=== PATIENT | male | born 1990 ===

== ENCOUNTER 2021-08-22 14:11 | Inpatient (IN) ==
[2021-08-22 14:45] LABS: Hematocrit 20 % (42-52); Hemoglobin 6.7 g/dL (14.0-18.0); Mean Corpuscular HGB Conc 33 g/dL (31-36); Mean Corpuscular Hemoglobin 28 pg (27-31); Mean Corpuscular Volume 86 fL (80-94); Red Blood Count 2.35 10^6 /uL (4.18-5.48); Red Cell Distribution Width 15 % (10-15); White Blood Count 3.3 10^3/uL (3.5-10.8)
[2021-08-22 14:53] LABS: Activated Partial Thrombo Time 30.4 seconds (26.0-38.0); INR 1.08 (0.86-1.15)
[2021-08-22 14:59] LABS: Albumin 3.8 g/dL (3.2-5.2); Albumin/Globulin Ratio 1.9 (1-3); Calcium 8.4 mg/dL (8.6-10.3); Potassium 3.8 mmol/L (3.5-5.0); Total Bilirubin 0.4 mg/dL (0.2-1.0); Total Protein 5.8 g/dL (6.4-8.9)
[2021-08-22 15:00] LABS: ABS Eosinophils 0.1 10^3/ul (0-0.6); ABS Lymphocytes 1.2 10^3/ul (1.0-4.8); ABS Monocytes 0.3 10^3/ul (0-0.8); ABS Neutrophils 1.7 10^3/ul (1.5-7.7); Eosinophil % 4.3 %; Lymphocyte % 35.7 %; Mean Platelet Volume 10.5 fL (7.4-10.4); Nucleated Red Blood Cells % 0.1; Platelet Count 95 10^3/uL (150-450)
[2021-08-22] MEDS ORDERED: PEG 3000 GI LAVAGE 1 GALLON PO ONE (17:24)
[2021-08-22 17:55] LABS: Iron < 20 ug/dL (50-212)
[2021-08-22 18:14] LABS: Ferritin 3.3 ng/mL (24-336)
[2021-08-22] MEDS: NS 0.9% 1000 ml BAG 1,000 ML IV SCH (21:54)
[2021-08-22 22:08] LABS: Hematocrit 23 % (42-52); Hemoglobin 7.5 g/dL (14.0-18.0)
[2021-08-23] MEDS ORDERED: Magnesium CITRATE LIQ 300 ML BTL PO ONE (05:00)
[2021-08-23 06:29] LABS: Calcium 8.4 mg/dL (8.6-10.3); Potassium 3.9 mmol/L (3.5-5.0); eGFR CKD-EPI 123.6 (>60)
[2021-08-23 06:38] LABS: ABS Eosinophils 0.2 10^3/ul (0-0.6); ABS Lymphocytes 1.8 10^3/ul (1.0-4.8); ABS Monocytes 0.3 10^3/ul (0-0.8); ABS Neutrophils 1.9 10^3/ul (1.5-7.7); Eosinophil % 4.5 %; Hematocrit 23 % (42-52); Hemoglobin 7.7 g/dL (14.0-18.0); Lymphocyte % 42.9 %; Mean Corpuscular HGB Conc 34 g/dL (31-36); Mean Corpuscular Hemoglobin 29 pg (27-31); Mean Corpuscular Volume 87 fL (80-94); Mean Platelet Volume 11.1 fL (7.4-10.4); Nucleated Red Blood Cells % 0.1; Platelet Count 98 10^3/uL (150-450); Red Blood Count 2.63 10^6 /uL (4.18-5.48); Red Cell Distribution Width 15 % (10-15); White Blood Count 4.2 10^3/uL (3.5-10.8)
[2021-08-23] MEDS ORDERED: Ondansetron 4 mg VIAL 2 MG/ML 2 ml VIAL IV PRN (07:14)
[2021-08-23 10:21] LABS: Vitamin B12 185 pg/mL (180-914)
[2021-08-23] MEDS: NS 0.9% 1000 ml BAG 1,000 ML IV SCH (10:58)
[2021-08-23] MEDS ORDERED: Iron Sucrose 200 MG in NS 0.9% 100 ml BAG 100 ML IVPB ONE (12:00)
[2021-08-23] MEDS ORDERED: Cyanocobalamin INJ 1,000 MCG/ML VIAL 1 ML VIAL IM ONE (14:00)
[2021-08-23 14:11] LABS: Hepatitis B Surface Antigen Nonreactive (Nonreactive)
[2021-08-23] MEDS ORDERED: Midazolam 10 mg/10 ml VIAL 1 mg/ml 10 ml VIAL (10 mg) ONE (14:15)
[2021-08-23] MEDS ORDERED: diPHENhydraMINE IV 50 MG/ML 1 ml VIAL (BENADRYL) ONE (14:15)
[2021-08-23] MEDS ORDERED: fentaNYL 100 mcg/2 ml 50 MCG/ML VIAL ONE (14:15)
[2021-08-23 14:16] LABS: Hepatitis A Ab IgM Negative (Negative)
[2021-08-23 14:17] LABS: Hepatitis B Core IgM Nonreactive (Nonreactive)
[2021-08-23 14:29] LABS: Hepatitis C Antibody Negative (Negative)
[2021-08-24] MEDS: NS 0.9% 1000 ml BAG 1,000 ML IV SCH ×2 (03:48→19:55)
[2021-08-24] MEDS ORDERED: NS 0.9% 1000 ml BAG 1,000 ML IV ONE (04:30)
[2021-08-24 05:03] LABS: Immature Retic Fraction 0.56; RBC Retic Count 2.31 10^6/uL (4.18-5.48); Red Blood Count 2.31 10^6 /uL (4.18-5.48)
[2021-08-24 05:05] LABS: Calcium 8.1 mg/dL (8.6-10.3); eGFR CKD-EPI 125.1 (>60)
[2021-08-24 05:11] LABS: Hematocrit 20 % (42-52); Hematocrit for Retic CNT 20 % (42-52); Hemoglobin 6.7 g/dL (14.0-18.0); Mean Corpuscular HGB Conc 33 g/dL (31-36); Mean Corpuscular Hemoglobin 29 pg (27-31); Mean Corpuscular Volume 87 fL (80-94); Mean Platelet Volume 11.1 fL (7.4-10.4); Platelet Count 88 10^3/uL (150-450); Red Cell Distribution Width 15 % (10-15); White Blood Count 4.9 10^3/uL (3.5-10.8)
[2021-08-24 05:37] LABS: Folate 10.44 ng/mL (5.90-24.80)
[2021-08-24 05:39] LABS: Hepatitis B Surface Antigen Nonreactive (Nonreactive)
[2021-08-24 05:48] LABS: ABS Eosinophils 0.1 10^3/ul (0-0.6); ABS Lymphocytes 0.8 10^3/ul (1.0-4.8); ABS Monocytes 0.3 10^3/ul (0-0.8); ABS Neutrophils 3.7 10^3/ul (1.5-7.7); Eosinophil % 1.6 %; Lymphocyte % 17.1 %; Nucleated Red Blood Cells % 0.1
[2021-08-24] MEDS: Iron Sucrose 200 MG in NS 0.9% 100 ml BAG 100 ML IVPB SCH (16:18)
[2021-08-24] MEDS: Psyllium PAK PO SCH (16:18)
[2021-08-25 07:17] LABS: ABS Eosinophils 0.1 10^3/ul (0-0.6); ABS Lymphocytes 1.1 10^3/ul (1.0-4.8); ABS Monocytes 0.3 10^3/ul (0-0.8); ABS Neutrophils 1.9 10^3/ul (1.5-7.7); Eosinophil % 3.5 %; Hematocrit 22 % (42-52); Hemoglobin 7.1 g/dL (14.0-18.0); Lymphocyte % 31.8 %; Mean Corpuscular HGB Conc 33 g/dL (31-36); Mean Corpuscular Hemoglobin 28 pg (27-31); Mean Corpuscular Volume 86 fL (80-94); Mean Platelet Volume 10.8 fL (7.4-10.4); Nucleated Red Blood Cells % 0.2; Platelet Count 97 10^3/uL (150-450); Red Blood Count 2.51 10^6 /uL (4.18-5.48); Red Cell Distribution Width 16 % (10-15); White Blood Count 3.5 10^3/uL (3.5-10.8)
[2021-08-25] MEDS: Psyllium PAK PO SCH (10:08)
[2021-08-25] MEDS: NS 0.9% 1000 ml BAG 1,000 ML IV SCH (10:10)
[2021-08-25] MEDS: Iron Sucrose 200 MG in NS 0.9% 100 ml BAG 100 ML IVPB SCH (10:10)
[2021-08-26 03:31] VITALS: BP 102/48
[2021-08-26] MEDS ORDERED: Iron Sucrose 200 MG in NS 0.9% 100 ml BAG 100 ML IVPB ONE (06:00)
[2021-08-26 06:33] LABS: ABS Eosinophils 0.1 10^3/ul (0-0.6); ABS Lymphocytes 1.2 10^3/ul (1.0-4.8); ABS Monocytes 0.3 10^3/ul (0-0.8); ABS Neutrophils 1.7 10^3/ul (1.5-7.7); Eosinophil % 4.3 %; Hematocrit 23 % (42-52); Hemoglobin 7.7 g/dL (14.0-18.0); Lymphocyte % 36.3 %; Mean Corpuscular HGB Conc 33 g/dL (31-36); Mean Corpuscular Hemoglobin 29 pg (27-31); Mean Corpuscular Volume 86 fL (80-94); Mean Platelet Volume 10.6 fL (7.4-10.4); Nucleated Red Blood Cells % 0.1; Platelet Count 114 10^3/uL (150-450); Red Blood Count 2.67 10^6 /uL (4.18-5.48); Red Cell Distribution Width 16 % (10-15); White Blood Count 3.3 10^3/uL (3.5-10.8)
[2021-08-26] MEDS: Psyllium PAK PO SCH (08:52)
[2021-08-27 10:18] LABS: Kappa Free Light Chain 1.37 mg/dL; Lambda Free Light Chain, S 1.26 mg/dL
[2021-08-27 20:42] LABS: Tissue Transglutaminase IgA Ab <1.2 U/mL
[2021-08-27 23:52] LABS: Immunoglobulin A 186 mg/dL (61 - 356)
[2021-08-28 15:07] LABS: Albumin 2.7 g/dL (3.4-4.7); Albumin/Globulin Ratio 1.45; Gamma Globulin 0.6 g/dL (0.6-1.6); Total Protein(PEP) 4.6 g/dL (6.3 - 7.9)
== END 2021-08-26 09:58 | disposition home or self-care (01) | DRG 378 ==
LOC: ED 14:11 → EDHOLD 17:41 → MED 21:28
PROVIDERS: ADMIT Hospitalist; ATTEND Internal Medicine